=== PATIENT | female | born 1945 | race Caucasian/White ===

== ENCOUNTER 2016-11-03 23:35 | Emergency (ER) | payer BC ==
[~2016-11-03] VITALS: Ht 172.7 cm; Wt 72.6 kg
[2016-11-03] MEDS ORDERED: SYNTHROID88 MCG ORAL (23:59)
[2016-11-03] MEDS ORDERED: DYAZIDE1 CAP ORAL (23:59)
[2016-11-03] MEDS ORDERED: RAMIPRIL5 MG ORAL (23:59)
[2016-11-03] MEDS ORDERED: AMBIEN10 MG ORAL (23:59)
[2016-11-04 00:20] VITALS: BP 142/79
--- NOTE | 2016-11-04 01:01 | Emergency Room Report ---
History of Present Illness General Chief Complaint: Edema Source: Patient Present Illness HPI [id number] walk-in with "a few days" of progressive pain/swelling to right calf Had "foot surgery" 7 weeks ago at [facility] for "hammer toes." Recently flew back and forth to [place] to visit family Following surgery, immobility for 2-3 days Not on control Not on AC No self or family history of DVT/PE Allergies: Coded Allergies: No Known Allergies (Unverified , 11/03/16) Patient History Past Medical History: none Past Surgical History: none Pertinent Family History: none Social History: Denies: smoking, alcohol use, drug use Now: No Immunizations: UTD Reviewed Nursing Documentation: PMH: Agreed, PSxH: Agreed Nursing Documentation-PMH Past Medical History: No History, Except For Hx Hypertension: Yes Hx Neurological Problems: No - Right hip replacement, 3 foot surgeries Review of Systems All Other Systems: negative except mentioned in HPI Physical Exam Vital Signs Date Time Temp Pulse Resp B/P (MAP) Pulse Ox O2 Delivery O2 Flow Rate FiO2 11/03/16 23:51 98.1 83 16 158/84 100 Room Air Sp02 EP Interpretation: reviewed, normal General Appearance: normal inspection, well appearing, no apparent distress, alert, GCS 15, non-toxic Head: normocephalic, atraumatic Eyes: bilateral eye PERRL, bilateral eye EOMI ENT: normal ENT inspection, hearing grossly normal, normal voice Neck: normal inspection, full range of motion, supple, no bony tend Respiratory: normal inspection, lungs clear, normal breath sounds, no respiratory distress, no retraction, no wheezing Cardiovascular #1: regular rate, rhythm, no edema Gastrointestinal: normal inspection, normal bowel sounds, non tender, soft, no guarding, no hernia Genitourinary: no CVA tenderness Musculoskeletal: normal inspection, back normal, normal range of motion, other - Right lower extremity: + homans sign. TTP to right calf. No comparment syndrome. Neurologic: normal inspection, alert, oriented x3, responsive, program research specialist III-XII nml as tested, motor strength/tone normal, speech normal Psychiatric: normal inspection, judgement/insight normal, mood/affect normal Skin: normal inspection, normal color, no rash Medical Decision Making Diagnostic Impression: Primary Impression: Right calf pain Additional Impression: DVT (deep venous thrombosis) Qualified Codes: I82.4Z1 - Acute embolism and thrombosis of unspecified deep veins of right distal lower extremity ER Course DVT risk factors : recent surgery, immobility and long distance plane ride Per verbal report from tech 2 deep veins distal to knee have clots. no DVT in popliteal or femoral deep vein In shared decision making with patient and , she elected to start Eliquis 10mg BID for 7 days and repeat ultrasound in 1 week. Also provided Rx refill for tx subsequent to 7 days which would be 5mg BID Advised to delay and cosmetic or elective procedure while on anticoagulation Patient's vitals are stable. She is <75years old, has no other major medical problems or comorbidities. She has a low risk of bleeding from fall from AC Will followup with PMD in 2-3 days Last Vital Signs Date Time Temp Pulse Resp B/P (MAP) Pulse Ox O2 Delivery O2 Flow Rate FiO2 11/04/16 00:20 98.1 74 14 142/79 100 Room Air Status: improved Disposition: HOME, SELF-CARE Scripts Apixaban (ELIQUIS) 5 Mg Tablet 10 MG PO BID for 7 Days, #28 TAB 1 Refill Prov: OMAR PARR M.D. 11/04/16 Referrals: NON PHYSICIAN (PCP) OMAR PARR M.D. Nov 04, 2016 01:01
[2016-11-04] MEDS ORDERED: ELIQUIS5 MG PO (02:17)
[2016-11-04 02:24] VITALS: BP 142/79
--- NOTE | 2016-11-04 23:08 | Diagnostic Imaging Report ---
APPROVED REPORT CPT Code: 74340 Present Symptoms Lower Extremity Pain: Right RIGHT LEG: Venous imaging reveals subacute thrombus in one of the paired calf veins (peroneal tibial). Imaging also reveals patency of the common femoral, popliteal and calf veins (posterior tibial and anterior tibial). Dr. Ott was notified of abnormal results at 1:41 AM .
== END 2016-11-04 02:24 | disposition home or self-care (01) ==
LOC: EMR 11-04 00:30
DX: I82.4Z1 Acute embolism and thrombosis of unspecified deep veins of right distal lower extremity (principal); I10 Essential (primary) hypertension; Z96.641 Presence of right artificial hip joint
CPT/HCPCS: 93971; 99283